=== PATIENT | male | born 1970 | race Caucasian/White ===

== ENCOUNTER 2021-10-28 08:56 | Emergency (ER) | payer BC ==
[2021-10-28 09:09] VITALS: BP 154/108; PULSE 74; RESP 18; TEMP 98.6; BMI 29.2
[2021-10-28 11:21] LABS: THROAT:GRP A STREP NOT DETECTED (NOTDETECTED)
== END 2021-10-28 09:29 | disposition home or self-care (01) ==
LOC: FER 08:56
DX: J02.9 Acute pharyngitis, unspecified (principal)
CPT/HCPCS: 0241U-QW; 87651; 99283-25